=== PATIENT | male | born 1985 ===

== ENCOUNTER 2021-07-06 16:14 | Emergency (ER) | payer OTHER ==
[~2021-07-06] VITALS: Ht 167.6 cm; Wt 81.7 kg
[2021-07-06] MEDS ORDERED: ERYT.5TO RIGHTEYE (17:25)
== END 2021-07-06 17:53 | disposition home or self-care (01) ==
LOC: ER 16:14 → EDBD 16:14 → ER 17:53
DX: S05.01XA Injury of conjunctiva and corneal abrasion without foreign body, right eye, initial encounter (principal); Y99.0 Civilian activity done for income or pay; W45.8XXA Other foreign body or object entering through skin, initial encounter
CPT/HCPCS: 99283; A9270

== ENCOUNTER 2021-07-10 14:22 | Emergency (ER) | payer OTHER ==
[~2021-07-10] VITALS: Ht 167.6 cm; Wt 83.9 kg
[~2021-07-10 14:22] MED LIST: ERYT.5TO RIGHTEYE
== END 2021-07-10 15:10 | disposition home or self-care (01) ==
LOC: ER 14:22
DX: H10.9 Unspecified conjunctivitis (principal)
CPT/HCPCS: 99282